=== PATIENT | female | born 1960 | race Two or more races ===

== ENCOUNTER 2019-05-10 06:42 | Emergency (ER) | payer MEDICAID, OTHER ==
[2019-05-10] MEDS: IBUPROFEN 600 MG TAB PO (08:02)
== END 2019-05-10 08:32 | disposition home or self-care (01) ==
LOC: E/R 06:42
DX: R07.89 Other chest pain (principal); I10 Essential (primary) hypertension; E11.9 Type 2 diabetes mellitus without complications
CPT/HCPCS: 71045; 73610-RT; 73630; 82962; 93005; 99284-25